=== PATIENT | female | born 1995 | race Caucasian/White ===

== ENCOUNTER 2020-03-01 20:05 | Emergency (ER) | payer SELFPAY ==
[2020-03-01] MEDS ORDERED: Ondansetron 4 MG/2 ML SDV IVPUSH ONE (20:37)
[2020-03-01] MEDS ORDERED: Sodium Chloride 0.9% 1,000 ML IV ONE (20:37)
[2020-03-01 21:16] LABS: BLOOD UREA NITROGEN,BUN 10 mg/dL (7.0-18.0); CARBON DIOXIDE,CO2 25.8 mmol/L (21.0-32.0); CHLORIDE,CL 102 mmol/L (98-107); GLUCOSE RANDOM 101 mg/dL (74-106); LIPASE 48 U/L (73-393); POTASSIUM,K 3.6 mmol/L (3.5-5.1); SODIUM,NA 139 mmol/L (136-145)
--- NOTE | 2020-03-01 21:29 | EDM.PDOC ---
ED HPI GENERAL MEDICAL PROBLEM - General Chief Complaint: Abdominal Pain Stated Complaint: ABDOMINAL PAIN Time Seen by Provider: 03/01/20 20:30 Source of Information: Reports: Patient History Limitations: Reports: No Limitations - History of Present Illness INITIAL COMMENTS - FREE TEXT/NARRATIVE: HISTORY AND PHYSICAL: History of present illness: This a 24-year-old female who has a history significant for asthma, status post cholecystectomy, x2, who presents the ER today secondary to abdominal pain x4 days. Patient reports of the last 4 days the pain was severe. She reports yesterday the pain improved significantly and the pain today started coming back. Patient reports that she has been able to tolerate p.o. solids and liquids well today. Patient reports that she ate pizza bites as well as a sandwich earlier today and drank some alcohol as well. Patient reports no fevers, shakes, chills. Patient reports nausea with no vomiting. Patient per she had 3 loose bowel movements today that were dark in color. Patient denies any dysuria frequency urgency. Patient has any cough cold or rhinorrhea. Patient denies any vaginal discharge. Patient reports that the pain is greatest in the left upper quadrant region. Review of systems: As per history of present illness and below otherwise all systems reviewed and negative. Past medical history: As per history of present illness and as reviewed below otherwise noncontributory. Surgical history: As per history of present illness and as reviewed below otherwise noncontributory. Social history: No reported history of drug or alcohol abuse. Family history: As per history of present illness and as reviewed below otherwise noncontributory. Physical exam: constitutional: Patient is oriented to person, place, and time. Appears well- developed and well-nourished. No distress. HEENT: Moist mucous membranes Head: Normocephalic and atraumatic Eyes: Right eye exhibits no discharge. Left eye exhibits no discharge. No scleral icterus Neck: Normal range of motion. No tracheal deviation present. Cardiovascular: Tachycardic rate and regular rhythm. Pulmonary: Effort normal, no respiratory distress. Abd: Soft, nondistended, no rebound/guarding, no psoas or obturator signs, no tenderness at Mcberney's point, no Kirkpatrick's sign. Pt does not present with an exam that would be consistent with an acute surgical abdomen at this time. Mild tenderness to palpation left upper quadrant. Musculoskeletal: Normal range of motion Neurologic: Alert and oriented to person, place and time. Skin: [place], warm and dry. Psychiatric: Normal mood and affect. Behavior is normal. Judgment and thought content normal. Nursing note and vital signs have been reviewed Patient's ER physical exam is significant for a nonsurgical abdomen. Patient with minimal tenderness to palpation to her left upper quadrant. Patient is resting comfortably does not appear to be in any acute distress. Patient's rectal exam revealed brown heme-negative stool. Diagnostics: Patient's labs are all within normal limits. Therapeutics: Patient be given normal saline solution x1 L. Zofran 4 mg IV. Impression: This is a 24-year-old female who presents to the ER today secondary to abdominal pain in the left upper quadrant. Patient is ready status post cholecystectomy. Patient is morbidly obese. Patient reports that she ate pizza bites as well as sandwich earlier today and was drinking alcohol earlier this evening. Patient reports she was able to tolerate the sandwich the pizza bites in the alcohol without any difficulty. Of concern with the patient is her tachycardic. Patient's heart rate was 115. Patient reports that she walked approximately 6-7 blocks to come to the ED and thinks that is why her heart rate was going fast. Plan: Patient feels much improved in the ED and appears to be no acute distress. Patient be discharged home with a prescription for Zofran and instructions to follow a bland diet over the next 24 hours and instructions follow-up with her primary care physician in the next 1 to 2 days for reevaluation. Reassessment at the time of disposition demonstrates that the patient is in no acute distress. The patient has remained stable throughout the entire ED visit and is without objective evidence for acute process requiring urgent intervention or hospitalization. The patient is stable for discharge, counseling is provided as documented above, discussed symptomatic treatment and specific conditions for return. I have spoken with the patient/caregive and discussed todays findings, in addition to providing specific details for the plan of care. Questions are answered and there is agreement with the plan. Definitive disposition and diagnosis as appropriate pending reevaluation and review of above. abdominal Pain Score (Numeric/FACES): 4 - Related Data Allergies Allergy/AdvReac Type Severity Reaction Status Date / Time celery Allergy Other Verified 03/01/20 20:23 cucumber Allergy Other Verified 03/01/20 20:23 latex Allergy Swelling Verified 03/01/20 20:23 Melons Allergy Difficulty Uncoded 03/01/20 20:23 Swallowing Home Meds: Home Meds Ondansetron [Zofran ODT] 4 mg PO Q6H PRN #12 tab.dis 03/01/20 [Rx] Past Medical History HEENT History: Reports: None Cardiovascular History: Reports: None Respiratory History: Reports: Asthma Other Respiratory History: REports currently no inhaler as no provider in area Other Gastrointestinal History: Cholecystitis, abdominal discomfort Genitourinary History: Reports: None SWITCH TECHNICIAN History: Reports: None Other Musculoskeletal History: Reports residual numbness to leg since Epidural for delivery , hx: fracturing toe & wrist Other Neuro History: Headaches Psychiatric History: Reports: None, ADHD, Anxiety, Depression Dermatologic History: Reports: None - Infectious Disease History Infectious Disease History: Reports: Chicken Pox, Hepatitis C - Past Surgical History GI Surgical History: Reports: Cholecystectomy Other Female Surgeries/Procedures: Social & Family History - Tobacco Use Smoking Status *Q: Current Every Day Smoker Years of Tobacco use: 5 Packs/Tins Daily: 1 - Recreational Drug Use Recreational Drug Use: No ED ROS GENERAL - Review of Systems Review Of Systems: Comprehensive ROS is negative, except as noted in HPI. ED EXAM, GENERAL - Physical Exam Exam: See Below Course - Vital Signs Last Recorded V/S: Last Vital Signs Temp 97.4 F 03/01/20 22:15 Pulse 89 03/01/20 22:15 Resp 18 03/01/20 22:15 BP 125/73 03/01/20 22:15 Pulse Ox 98 03/01/20 22:15 - Orders/Labs/Meds Labs: Laboratory Tests 03/01/20 03/01/20 03/01/20 Range/Units 20:37 20:37 20:48 WBC 13.96 H (4.0-11.0) K/uL RBC 4.94 (4.30-5.90) M/uL Hgb 14.3 (12.0-16.0) g/dL Hct 43.5 (36.0-46.0) % MCV 88.1 (80.0-98.0) fL MCH 28.9 (27.0-32.0) pg MCHC 32.9 (31.0-37.0) g/dL RDW Std Deviation 43.1 (28.0-62.0) fl RDW Coeff of [place] 13 (11.0-15.0) % Plt Count 266 (150-400) K/uL MPV 8.90 (7.40-12.00) fL Neut % (Auto) 64.7 (48.0-80.0) % Lymph % (Auto) 23.8 (16.0-40.0) % [place] % (Auto) 6.2 (0.0-15.0) % Eos % (Auto) 5.1 (0.0-7.0) % Baso % (Auto) 0.2 (0.0-1.5) % Neut # (Auto) 9.0 H (1.4-5.7) K/uL Lymph # (Auto) 3.3 H (0.6-2.4) K/uL [place] # (Auto) 0.9 H (0.0-0.8) K/uL Eos # (Auto) 0.7 (0.0-0.7) K/uL Baso # (Auto) 0.0 (0.0-0.1) K/uL Nucleated RBC % 0.0 /100WBC Nucleated RBCs # 0 K/uL Sodium (136-145) mmol/L Potassium (3.5-5.1) mmol/L Chloride (98-107) mmol/L Carbon Dioxide (21.0-32.0) mmol/L BUN (7.0-18.0) mg/dL Creatinine (0.6-1.0) mg/dL Est Cr Clr Drug Dosing mL/min Estimated GFR (MDRD) ml/min Glucose (74-106) mg/dL Calcium (8.5-10.1) mg/dL Total Bilirubin (0.2-1.0) mg/dL AST (15-37) IU/L ALT (14-63) IU/L Alkaline Phosphatase (46-116) U/L Total Protein (6.4-8.2) g/dL Albumin (3.4-5.0) g/dL Globulin (2.6-4.0) g/dL Albumin/Globulin Ratio (0.9-1.6) Lipase (73-393) U/L Urine Color YELLOW Urine Appearance CLEAR Urine pH 5.5 (5.0-8.0) Ur Specific [place] >= 1.030 (1.001-1.035) Urine Protein NEGATIVE (NEGATIVE) mg/dL Urine Glucose (UA) NEGATIVE (NEGATIVE) mg/dL Urine Ketones NEGATIVE (NEGATIVE) mg/dL Urine Occult Blood NEGATIVE (NEGATIVE) Urine Nitrite NEGATIVE (NEGATIVE) Urine Bilirubin NEGATIVE (NEGATIVE) Urine Urobilinogen 0.2 (<2.0) EU/dL Ur Leukocyte Esterase NEGATIVE (NEGATIVE) Urine HCG, Qual NEGATIVE (NEGATIVE) Ethyl Alcohol mg/dL 03/01/20 Range/Units 20:48 WBC (4.0-11.0) K/uL RBC (4.30-5.90) M/uL Hgb (12.0-16.0) g/dL Hct (36.0-46.0) % MCV (80.0-98.0) fL MCH (27.0-32.0) pg MCHC (31.0-37.0) g/dL RDW Std Deviation (28.0-62.0) fl RDW Coeff of [place] (11.0-15.0) % Plt Count (150-400) K/uL MPV (7.40-12.00) fL Neut % (Auto) (48.0-80.0) % Lymph % (Auto) (16.0-40.0) % [place] % (Auto) (0.0-15.0) % Eos % (Auto) (0.0-7.0) % Baso % (Auto) (0.0-1.5) % Neut # (Auto) (1.4-5.7) K/uL Lymph # (Auto) (0.6-2.4) K/uL [place] # (Auto) (0.0-0.8) K/uL Eos # (Auto) (0.0-0.7) K/uL Baso # (Auto) (0.0-0.1) K/uL Nucleated RBC % /100WBC Nucleated RBCs # K/uL Sodium 139 (136-145) mmol/L Potassium 3.6 (3.5-5.1) mmol/L Chloride 102 (98-107) mmol/L Carbon Dioxide 25.8 (21.0-32.0) mmol/L BUN 10 (7.0-18.0) mg/dL Creatinine 0.8 (0.6-1.0) mg/dL Est Cr Clr Drug Dosing 99.76 mL/min Estimated GFR (MDRD) > 60.0 ml/min Glucose 101 (74-106) mg/dL Calcium 8.4 L (8.5-10.1) mg/dL Total Bilirubin 0.3 (0.2-1.0) mg/dL AST 12 L (15-37) IU/L ALT 21 (14-63) IU/L Alkaline Phosphatase 93 (46-116) U/L Total Protein 7.8 (6.4-8.2) g/dL Albumin 3.5 (3.4-5.0) g/dL Globulin 4.3 H (2.6-4.0) g/dL Albumin/Globulin Ratio 0.8 L (0.9-1.6) Lipase 48 L (73-393) U/L Urine Color Urine Appearance Urine pH (5.0-8.0) Ur Specific [place] (1.001-1.035) Urine Protein (NEGATIVE) mg/dL Urine Glucose (UA) (NEGATIVE) mg/dL Urine Ketones (NEGATIVE) mg/dL Urine Occult Blood (NEGATIVE) Urine Nitrite (NEGATIVE) Urine Bilirubin (NEGATIVE) Urine Urobilinogen (<2.0) EU/dL Ur Leukocyte Esterase (NEGATIVE) Urine HCG, Qual (NEGATIVE) Ethyl Alcohol 3 mg/dL Meds: Medications Discontinued Medications Generic Name Dose Route Start Last Admin Trade Name Freq PRN Reason Stop Dose Admin Sodium Chloride 1,000 mls @ 1,000 mls/hr 03/01/20 20:37 03/01/20 20:48 Normal Saline IV 03/01/20 21:36 1,000 mls/hr BOLUS ONE Administration Ondansetron HCl 4 mg 03/01/20 20:37 Zofran IVPUSH 03/01/20 20:38 ONETIME ONE Departure - Departure Time of Disposition: 21:29 Disposition: Home, Self-Care 01 Condition: Good Clinical Impression: Abdominal pain - Discharge Information *PRESCRIPTION DRUG MONITORING PROGRAM REVIEWED*: Not Applicable *COPY OF PRESCRIPTION DRUG MONITORING REPORT IN PATIENT THU: Not Applicable Prescriptions: Ondansetron [Zofran ODT] 4 mg PO Q6H PRN #12 tab.dis PRN Reason: Pain Instructions: Abdominal Pain, Adult, [id number] Referrals: PCP,None [Primary Care Provider] - Forms: ED Department Discharge Additional Instructions: You were seen in the ER today secondary to your abdominal pain. Your ER work- up is been unremarkable. Over the next 1 to 2 days please follow a bland diet including no spices, clear liquids, toast cookies crackers. Nothing fatty or greasy. Please make an appointment to follow-up with your family doctor in the next 1 to 2 days for reevaluation. You have been given a prescription for Zofran to assist you with your nausea. Avoid all alcohol. The following information is given to patients seen in the emergency department who are being discharged to home. This information is to outline your options for follow-up care. We provide all patients seen in our emergency department with a follow-up referral. The need for follow-up, as well as the timing and circumstances, are variable depending upon the specifics of your emergency department visit. If you don't have a primary care physician on staff, we will provide you with a referral. We always advise you to contact your personal physician following an emergency department visit to inform them of the circumstance of the visit and for follow-up with them and/or the need for any referrals to a consulting specialist. The emergency department will also refer you to a specialist when appropriate. This referral assures that you have the opportunity for follow-up care with a specialist. All of these measure are taken in an effort to provide you with optimal care, which includes your follow-up. Under all circumstances we always encourage you to contact your private physician who remains a resource for coordinating your care. When calling for follow-up care, please make the office aware that this follow-up is from your recent emergency room visit. If for any reason you are refused follow-up, please contact the [facility] Emergency Department at and asked to speak to the emergency department charge nurse. Sepsis Event Note (ED) - Evaluation Sepsis Screening Result: No Definite Risk - Focused Exam Vital Signs: Vital Signs Temp Pulse Resp BP Pulse Ox 03/01/20 22:15 97.4 F 89 18 125/73 98 03/01/20 21:47 85 18 135/84 98 03/01/20 21:32 95 18 135/82 95 03/01/20 20:52 108 H 18 142/84 H 96 03/01/20 20:26 97.2 F 121 H 20 144/84 H 96
[2020-03-01 22:49] VITALS: BP 129/61; PULSE 96
== END 2020-03-01 22:49 | disposition home or self-care (01) ==
LOC: MW.ED 20:05
DX: R10.12 Left upper quadrant pain (principal); F17.210 Nicotine dependence, cigarettes, uncomplicated; Z90.49 Acquired absence of other specified parts of digestive tract; Z91.018 Allergy to other foods; Z91.040 Latex allergy status
CPT/HCPCS: 36415; 80053; 80307; 81003; 81025; 83690; 85025; 99284; J7030

== ENCOUNTER 2020-04-10 21:03 | Emergency (ER) | payer SELFPAY ==
[2020-04-10] MEDS ORDERED: Albuterol 8 GM Inhaler INH ONE (21:16)
[2020-04-10 21:19] VITALS: BP 133/75; PULSE 102
--- NOTE | 2020-04-10 21:22 | EDM.PDOC ---
ED HPI GENERAL MEDICAL PROBLEM - General Chief Complaint: General Stated Complaint: MEDICAL CLEARANCE Time Seen by Provider: 04/10/20 21:07 Source of Information: Reports: Patient History Limitations: Reports: No Limitations - History of Present Illness INITIAL COMMENTS - FREE TEXT/NARRATIVE: HISTORY AND PHYSICAL: History of present illness: Patient is a 25-year-old female who presents to the emergency room requesting a medication refill. Patient is currently in the custody of law enforcement and states she does not have her pro-air inhaler which she will typically use daily or every other day for asthma. She states she is currently asymptomatic and offers no current complaints or concerns. Patient denies any fever, chills, headache, change in vision, syncope or near syncope. Denies any chest pain, back pain, shortness of breath or cough. Denies any GI or symptoms. Denies any alcohol or drug abuse. Review of systems: As per history of present illness and below otherwise all systems reviewed and negative. Past medical history: As per history of present illness and as reviewed below otherwise noncontributory. Surgical history: As per history of present illness and as reviewed below otherwise noncontributory. Social history: See social history for further information Family history: As per history of present illness and as reviewed below otherwise noncontributory. Physical exam: General: Well-developed and well-nourished 25-year-old female. Alert and oriented. Nontoxic-appearing and in no acute distress. Patient is accompanied by law enforcement. HEENT: Atraumatic, normocephalic, pupils equal and reactive bilaterally, negative for conjunctival pallor or scleral icterus, mucous membranes moist, trachea midline. No drooling or trismus noted. No meningeal signs. No hot potato voice noted. Lungs: Clear to auscultation, breath sounds equal bilaterally, chest nontender. Heart: S1S2, regular rate and rhythm without overt murmur Abdomen: Soft, nondistended, nontender. Skin: Intact, warm, dry. No lesions or rashes noted. Extremities: Atraumatic, moves all extremities per self without difficulty or deficits, negative for cords or calf pain. Neurovascular unremarkable. Neuro: Awake, alert, oriented. Cranial nerves II through XII unremarkable. Cerebellum unremarkable. Motor and sensory unremarkable throughout. Exam nonfocal. Notes: My physical exam is within normal limits. She offers no current complaints or concerns. Pharmacy is closed so we will dispense a pro-air inhaler with education here. She declines wanting any diagnostics at this time. Supportive care measures were reviewed and discussed. Voices understanding and is agreeable to plan of care. Denies any further questions or concerns at this time. Diagnostics: None Therapeutics: Air inhaler Prescription: None Impression: Encounter for medical screening exam Encounter for medication refill Plan: 1. Please use the inhaler as needed, 2 puffs every 4 hours for cough or difficulty breathing. 2. You can alternate Tylenol and ibuprofen as needed for pain and fever management. 3. Follow-up with your primary care provider as discussed. Return to the ED as needed and as discussed. Definitive disposition and diagnosis as appropriate pending reevaluation and review of above. - Related Data Allergies Allergy/AdvReac Type Severity Reaction Status Date / Time celery Allergy Other Verified 04/10/20 21:12 cucumber Allergy Other Verified 04/10/20 21:12 latex Allergy Swelling Verified 04/10/20 21:12 Melons Allergy Difficulty Uncoded 04/10/20 21:12 Swallowing Home Meds: Home Meds Albuterol Sulfate [Proair Hfa] 2 puff INH ASDIRECTED PRN 04/10/20 [History] Past Medical History HEENT History: Reports: None Cardiovascular History: Reports: None Respiratory History: Reports: Asthma Other Respiratory History: REports currently no inhaler as no provider in area Other Gastrointestinal History: Cholecystitis, abdominal discomfort Genitourinary History: Reports: None LAN SPECIALIST History: Reports: None Other Musculoskeletal History: Reports residual numbness to leg since Epidural for delivery , hx: fracturing toe & wrist Other Neuro History: Headaches Psychiatric History: Reports: None, ADHD, Anxiety, Depression Dermatologic History: Reports: None - Infectious Disease History Infectious Disease History: Reports: Chicken Pox, Hepatitis C - Past Surgical History GI Surgical History: Reports: Cholecystectomy Other Female Surgeries/Procedures: ED ROS GENERAL - Review of Systems Review Of Systems: Comprehensive ROS is negative, except as noted in HPI. ED EXAM, GENERAL - Physical Exam Exam: See Below (See dictation) Course - Orders/Labs/Meds Orders: Active Orders 24 hr Category Date Time Status RT Post Treatment Assessment [RC] Click to Edit Care 04/10/20 21:16 Ordered RT Pre-Treatment Assessment [RC] Click to Edit Care 04/10/20 21:16 Ordered Meds: Medications Discontinued Medications Generic Name Dose Route Start Last Admin Trade Name Edward PRN Reason Stop Dose Admin Albuterol 1 gm 04/10/20 21:16 Ventolin Hfa INH 04/10/20 21:17 ONETIME ONE Departure - Departure Time of Disposition: 21:22 Disposition: Home, Self-Care 01 Clinical Impression: Encounter for medication refill, Encounter for medical screening examination - Discharge Information Instructions: Medical Screening Exam Referrals: PCP,None [Primary Care Provider] - Additional Instructions: The following information is given to patients seen in the emergency department who are being discharged to home. This information is to outline your options for follow-up care. We provide all patients seen in our emergency department with a follow-up referral. The need for follow-up, as well as the timing and circumstances, are variable depending upon the specifics of your emergency department visit. If you don't have a primary care physician on staff, we will provide you with a referral. We always advise you to contact your personal physician following an emergency department visit to inform them of the circumstance of the visit and for follow-up with them and/or the need for any referrals to a consulting specialist. The emergency department will also refer you to a specialist when appropriate. This referral assures that you have the opportunity for follow-up care with a specialist. All of these measure are taken in an effort to provide you with optimal care, which includes your follow-up. Under all circumstances we always encourage you to contact your private physician who remains a resource for coordinating your care. When calling for follow-up care, please make the office aware that this follow-up is from your recent emergency room visit. If for any reason you are refused follow-up, please contact the [facility] Emergency Department at and asked to speak to the emergency department charge nurse. [facility] [address] [place] [id number] [facility] [address] [place] [id number] Thank you for choosing the [facility] emergency department in [place] for your medical needs today. It was a pleasure caring for you. You were seen in the emergency department for medication refill 1. Please use the inhaler as needed, 2 puffs every 4 hours for cough or difficulty breathing. 2. You can alternate Tylenol and ibuprofen as needed for pain and fever management. 3. Follow-up with your primary care provider as discussed. Return to the ED as needed and as discussed. - My Orders Last 24 Hours: My Active Orders 04/10/20 21:16 RT Post Treatment Assessment [RC] Click to Edit RT Pre-Treatment Assessment [RC] Click to Edit - Assessment/Plan Last 24 Hours: My Active Orders 04/10/20 21:16 RT Post Treatment Assessment [RC] Click to Edit RT Pre-Treatment Assessment [RC] Click to Edit
== END 2020-04-10 21:36 | disposition home or self-care (01) ==
LOC: MW.ED 21:03
DX: J45.909 Unspecified asthma, uncomplicated (principal); Z76.0 Encounter for issue of repeat prescription; Z91.040 Latex allergy status; Z91.018 Allergy to other foods; Z79.899 Other long term (current) drug therapy
CPT/HCPCS: 99283; A9270

== ENCOUNTER 2020-12-19 15:49 | Emergency (ER) | payer BC ==
[2020-12-19] MEDS ORDERED: Sodium Chloride 0.9% 1,000 ML IV ONE (16:29)
[2020-12-19 17:37] LABS: BLOOD UREA NITROGEN,BUN 12 mg/dL (7.0-18.0); CARBON DIOXIDE,CO2 25.4 mmol/L (21.0-32.0); CHLORIDE,CL 103 mmol/L (98-107); GLUCOSE RANDOM 84 mg/dL (74-106); LIPASE 55 U/L (73-393); POTASSIUM,K 3.9 mmol/L (3.5-5.1); SODIUM,NA 136 mmol/L (136-145)
--- NOTE | 2020-12-19 18:23 | US ---
INDICATION: Pain in early gestational age is 13 weeks 3 days by LMP TECHNIQUE: Ultrasound OB pelvis transabdominal and transvaginal. Real-time cisneros-scale imaging of the pelvis was performed. COMPARISON: None FINDINGS: Sonographic imaging demonstrates a single living intrauterine gestation. The embryo demonstrates a regular cardiac rate measuring 166 beats per minute. The embryo`s crown rump length measurement of 6.3 cm corresponds to a gestational age of 12 weeks 5 days with a sonographic due date of June 28, 2021. Cervical length is 3.9 cm. There is a normal appearing yolk sac. There are no gross abnormalities noted within the embryo at this early state of development. The placenta is fundal and posterior. The anterior placental edge measures 3.1 cm from the cervical os. The gestational sac has a normal appearance and there is no evidence of a perigestational hemorrhage. The amount of fluid within the sac appears appropriate for gestational age. The ovaries were not seen. There are no suspicious fluid collections noted in the cul-de-sac. IMPRESSION: Single viable intrauterine . Gestational age calculated at 12 weeks 5 days. The ovaries were not identified on this exam. There is no free fluid. Dictated by Giuliana Issa MD @ Dec 19 2020 6:22PM Signed by Dr. Giuliana Issa @ Dec 19 2020 6:22PM
--- NOTE | 2020-12-19 18:28 | EDM.PDOC ---
ED HPI GENERAL MEDICAL PROBLEM - General Chief Complaint: HOUSEKEEPING ASSISTANT Problem Stated Complaint: ABDOMINAL PAIN 13 WKS Time Seen by Provider: 12/19/20 15:52 Source of Information: Reports: Patient History Limitations: Reports: No Limitations - History of Present Illness INITIAL COMMENTS - FREE TEXT/NARRATIVE: HISTORY AND PHYSICAL: History of present illness: Patient is a 25 year old female, who is approximately 13 weeks in gestation, who presents to the ED today with concern of bilateral lower abdominal pain that has been ongoing for 3 days. She states that she has had 2 prior C-sections due to preeclampsia and failure to dilate during labor. Patient states that the pain is "crossed where her was "and describes as sharp. Patient states the pain is worse with positions and better when she lays on her side and does not move with a pillow between her legs. Patient states that she has not taking any medication for her symptoms. Patient states that she sees one of the midwives at [facility]. Patient states that she had an ultrasound approximately 1 week ago and was told that everything "looked fine "with the baby. States she has a history of cholecystectomy, 2 prior c sections, but denies any other abdominal surgeries. Patient denies any vaginal bleeding or change in vaginal discharge. Patient denies fever, chills, chest pain, shortness of breath, or cough. Denies headache, neck stiff ness, change in vision, syncope, or near syncope. Denies nausea, vomiting, diarrhea, constipation, or dysuria. Has not noted any blood in urine or stool. Patient has been eating and drinking appropriately. Review of systems: As per history of present illness and below otherwise all systems reviewed and negative. Past medical history: As per history of present illness and as reviewed below otherwise noncontributory. Surgical history: As per history of present illness and as reviewed below otherwise noncontributory. Social history: See social history for further information Family history: As per history of present illness and as reviewed below otherwise noncontributory. Physical exam: General: Patient is alert, oriented, and in no acute distress. Patient sitting comfortably on exam table. Vitals stable and reviewed by me. HEENT: Atraumatic, normocephalic, pupils equal and reactive bilaterally, negative for conjunctival pallor or scleral icterus, mucous membranes moist, TMs normal bilaterally, throat clear, neck supple, nontender, trachea midline. No drooling or trismus noted. No meningeal signs. No hot potato voice noted. Lungs: Clear to auscultation, breath sounds equal bilaterally, chest nontender. Heart: S1S2, regular rate and rhythm without overt murmur Abdomen: Exam of abdomen is limited due to body habitus. Otherwise, soft, nondistended, mild-moderate lower abdominal tender. Negative rebound / virk. Negative for masses or hepatosplenomegaly. Negative for costovertebral tenderness. Pelvis: Stable nontender. Genitourinary: Deferred. Rectal: Deferred. Skin: Intact, warm, dry. No lesions or rashes noted. Extremities: Atraumatic, negative for cords or calf pain. Neurovascular unremarkable. Neuro: Awake, alert, oriented. Cranial nerves II through XII unremarkable. Cerebellum unremarkable. Motor and sensory unremarkable throughout. Exam nonfocal. Notes: On initial exam, patient is vitally stable and well-appearing. She does have moderate pain with movement of her lower abdomen. She does have mild to moderate lower abdominal tenderness which is difficult to assess and limited due to body habitus. Lab work today is unremarkable. Urine analysis is clear. Abdomen complete ultrasound shows no acute abnormalities. Transvaginal ultrasound shows single viable intrauterine with a gestational age of 12 weeks and 5 days. No free fluid. On reexamination of patient, she remains vitally stable and much more comfortable. Strict return precautions thoroughly discussed with patient. Discussed importance for follow-up with her HOUSEKEEPING ASSISTANT provider. Voices understanding and is agreeable to plan of care. Denies any further questions or concerns at this time. Diagnostics: CBC, CMP, UA, Hcg quant, Rh/Blood type, TVUS, Abd Complete US Therapeutics: NS Prescription: None Impression: Abdominal pain, unspecified Intrauterine , 12 weeks Plan: 1. Please start and/or continue to take your vitamin with folic acid once daily. 2. Pelvic rest until cleared by your OBGYN (no tampons, sex, etc...) 3. Tylenol as needed for pain management. This is safe to use in . 4. Follow up with your HOUSEKEEPING ASSISTANT as discussed. Return to the ED as needed and as discussed. Definitive disposition and diagnosis as appropriate pending reevaluation and review of above. Lower Abdomen Pain Score (Numeric/FACES): 8 - Related Data Allergies Allergy/AdvReac Type Severity Reaction Status Date / Time celery Allergy Other Verified 12/19/20 16:18 cucumber Allergy Other Verified 12/19/20 16:18 latex Allergy Swelling Verified 12/19/20 16:18 Melons Allergy Difficulty Uncoded 12/19/20 16:18 Swallowing Home Meds: Home Meds #103/Iron Fumarate/Fa [ ] 1 dose PO DAILY 12/19/20 [History] Past Medical History HEENT History: Reports: None Cardiovascular History: Reports: None Respiratory History: Reports: Asthma Other Respiratory History: REports currently no inhaler as no provider in area Other Gastrointestinal History: Cholecystitis, abdominal discomfort Genitourinary History: Reports: None HOUSEKEEPING ASSISTANT History: Reports: None Other Musculoskeletal History: Reports residual numbness to leg since Epidural for delivery , hx: fracturing toe & wrist Neurological History: Reports: Migraines Other Neuro History: Headaches Psychiatric History: Reports: None, ADHD, Anxiety, Depression Endocrine/Metabolic History: Reports: Obesity/BMI 30+ Dermatologic History: Reports: None - Infectious Disease History Infectious Disease History: Reports: Chicken Pox, Hepatitis C - Past Surgical History GI Surgical History: Reports: Cholecystectomy Other Female Surgeries/Procedures: Social & Family History - Family History Family Medical History: No Pertinent Family History - Tobacco Use Tobacco Use Status *Q: Current Every Day Tobacco User Years of Tobacco use: 7 Packs/Tins Daily: 0.1 - Caffeine Use Caffeine Use: Reports: None - Recreational Drug Use Recreational Drug Use: No ED ROS GENERAL - Review of Systems Review Of Systems: Comprehensive ROS is negative, except as noted in HPI. ED EXAM, GENERAL - Physical Exam Exam: See Below (see dictation) Course - Vital Signs Last Recorded V/S: Last Vital Signs Temp 96.9 F 12/19/20 16:19 Pulse 77 12/19/20 19:33 Resp 18 12/19/20 19:33 BP 110/59 L 12/19/20 19:33 Pulse Ox 100 12/19/20 19:33 - Orders/Labs/Meds Labs: Laboratory Tests 12/19/20 12/19/20 12/19/20 Range/Units 16:22 16:35 16:35 WBC 11.84 H (4.0-11.0) K/uL RBC 4.45 (4.30-5.90) M/uL Hgb 13.3 (12.0-16.0) g/dL Hct 39.5 (36.0-46.0) % MCV 88.8 (80.0-98.0) fL MCH 29.9 (27.0-32.0) pg MCHC 33.7 (31.0-37.0) g/dL RDW Std Deviation 44.9 (28.0-62.0) fl RDW Coeff of Ventura 14 (11.0-15.0) % Plt Count 207 (150-400) K/uL MPV 9.30 (7.40-12.00) fL Neut % (Auto) 71.3 (48.0-80.0) % Lymph % (Auto) 21.3 (16.0-40.0) % [place] % (Auto) 4.8 (0.0-15.0) % Eos % (Auto) 2.4 (0.0-7.0) % Baso % (Auto) 0.2 (0.0-1.5) % Neut # (Auto) 8.4 H (1.4-5.7) K/uL Lymph # (Auto) 2.5 H (0.6-2.4) K/uL [place] # (Auto) 0.6 (0.0-0.8) K/uL Eos # (Auto) 0.3 (0.0-0.7) K/uL Baso # (Auto) 0.0 (0.0-0.1) K/uL Nucleated RBC % 0.0 /100WBC Nucleated RBCs # 0 K/uL Sodium 136 (136-145) mmol/L Potassium 3.9 (3.5-5.1) mmol/L Chloride 103 (98-107) mmol/L Carbon Dioxide 25.4 (21.0-32.0) mmol/L BUN 12 (7.0-18.0) mg/dL Creatinine 0.6 (0.6-1.0) mg/dL Est Cr Clr Drug Dosing 131.85 mL/min Estimated GFR (MDRD) > 60.0 ml/min Glucose 84 (74-106) mg/dL Calcium 9.2 (8.5-10.1) mg/dL Total Bilirubin 0.3 (0.2-1.0) mg/dL AST 10 L (15-37) IU/L ALT 16 (14-63) IU/L Alkaline Phosphatase 70 (46-116) U/L Total Protein 7.4 (6.4-8.2) g/dL Albumin 2.9 L (3.4-5.0) g/dL Globulin 4.5 H (2.6-4.0) g/dL Albumin/Globulin Ratio 0.6 L (0.9-1.6) Lipase 55 L (73-393) U/L HCG, Quant 83769.0 mIU/mL Urine Color YELLOW Urine Appearance CLEAR Urine pH 6.5 (5.0-8.0) Ur Specific [place] 1.025 (1.001-1.035) Urine Protein NEGATIVE (NEGATIVE) mg/dL Urine Glucose (UA) NEGATIVE (NEGATIVE) mg/dL Urine Ketones NEGATIVE (NEGATIVE) mg/dL Urine Occult Blood NEGATIVE (NEGATIVE) Urine Nitrite NEGATIVE (NEGATIVE) Urine Bilirubin NEGATIVE (NEGATIVE) Urine Urobilinogen 0.2 (<2.0) EU/dL Ur Leukocyte Esterase NEGATIVE (NEGATIVE) Blood Type 12/19/20 Range/Units 16:44 WBC (4.0-11.0) K/uL RBC (4.30-5.90) M/uL Hgb (12.0-16.0) g/dL Hct (36.0-46.0) % MCV (80.0-98.0) fL MCH (27.0-32.0) pg MCHC (31.0-37.0) g/dL RDW Std Deviation (28.0-62.0) fl RDW Coeff of Ventura (11.0-15.0) % Plt Count (150-400) K/uL MPV (7.40-12.00) fL Neut % (Auto) (48.0-80.0) % Lymph % (Auto) (16.0-40.0) % Dar[place] % (Auto) (0.0-15.0) % Eos % (Auto) (0.0-7.0) % Baso % (Auto) (0.0-1.5) % Neut # (Auto) (1.4-5.7) K/uL Lymph # (Auto) (0.6-2.4) K/uL Dar[place] # (Auto) (0.0-0.8) K/uL Eos # (Auto) (0.0-0.7) K/uL Baso # (Auto) (0.0-0.1) K/uL Nucleated RBC % /100WBC Nucleated RBCs # K/uL Sodium (136-145) mmol/L Potassium (3.5-5.1) mmol/L Chloride (98-107) mmol/L Carbon Dioxide (21.0-32.0) mmol/L BUN (7.0-18.0) mg/dL Creatinine (0.6-1.0) mg/dL Est Cr Clr Drug Dosing mL/min Estimated GFR (MDRD) ml/min Glucose (74-106) mg/dL Calcium (8.5-10.1) mg/dL Total Bilirubin (0.2-1.0) mg/dL AST (15-37) IU/L ALT (14-63) IU/L Alkaline Phosphatase (46-116) U/L Total Protein (6.4-8.2) g/dL Albumin (3.4-5.0) g/dL Globulin (2.6-4.0) g/dL Albumin/Globulin Ratio (0.9-1.6) Lipase (73-393) U/L HCG, Quant mIU/mL Urine Color Urine Appearance Urine pH (5.0-8.0) Ur Specific Bristol (1.001-1.035) Urine Protein (NEGATIVE) mg/dL Urine Glucose (UA) (NEGATIVE) mg/dL Urine Ketones (NEGATIVE) mg/dL Urine Occult Blood (NEGATIVE) Urine Nitrite (NEGATIVE) Urine Bilirubin (NEGATIVE) Urine Urobilinogen (<2.0) EU/dL Ur Leukocyte Esterase (NEGATIVE) Blood Type O POSITIVE Meds: Medications Discontinued Medications Generic Name Dose Route Start Last Admin Trade Name Freq PRN Reason Stop Dose Admin Sodium Chloride 1,000 mls @ 999 mls/hr 12/19/20 16:29 12/19/20 16:49 Normal Saline IV 12/19/20 17:29 999 mls/hr STAT ONE Administration Departure - Departure Time of Disposition: 19:19 Disposition: Home, Self-Care 01 Clinical Impression: Intrauterine Abdominal pain Qualifiers: Abdominal location: lower abdomen, unspecified Qualified Code(s): R10.30 - Lower abdominal pain, unspecified - Discharge Information Instructions: Abdominal Pain, Adult Referrals: PCP,None [Primary Care Provider] - Forms: ED Department Discharge Additional Instructions: The following information is given to patients seen in the emergency department who are being discharged to home. This information is to outline your options for follow-up care. We provide all patients seen in our emergency department with a follow-up referral. The need for follow-up, as well as the timing and circumstances, are variable depending upon the specifics of your emergency department visit. If you don't have a primary care physician on staff, we will provide you with a referral. We always advise you to contact your personal physician following an emergency department visit to inform them of the circumstance of the visit and for follow-up with them and/or the need for any referrals to a consulting spec ialist. The emergency department will also refer you to a specialist when appropriate. This referral assures that you have the opportunity for follow-up care with a specialist. All of these measure are taken in an effort to provide you with optimal care, which includes your follow-up. Under all circumstances we always encourage you to contact your private physician who remains a resource for coordinating your care. When calling for follow-up care, please make the office aware that this follow-up is from your recent emergency room visit. If for any reason you are refused follow-up, please contact the [facility] Emergency Department at and asked to speak to the emergency department charge nurse. [facility] [address] [place] [id number] [facility] [address] [place] [id number] [facility] [address] [place] [address] 1. Please start and/or continue to take your vitamin with folic acid once daily. 2. Pelvic rest until cleared by your OBGYN (no tampons, sex, etc...) 3. Tylenol as needed for pain management. This is safe to use in . 4. Follow up with your HOUSEKEEPING ASSISTANT as discussed. Return to the ED as needed and as discussed. Sepsis Event Note (ED) - Evaluation Sepsis Screening Result: No Definite Risk - Focused Exam Vital Signs: Vital Signs Temp Pulse Resp BP Pulse Ox 12/19/20 19:33 77 18 110/59 L 100 12/19/20 18:38 72 17 120/63 99 12/19/20 18:08 73 18 108/73 98 12/19/20 16:19 96.9 F 99 19 139/73 96
--- NOTE | 2020-12-19 19:20 | US ---
INDICATION: Abdominal pain in TECHNIQUE: Ultrasound abdomen complete. Sonographic images of the entire abdomen were obtained using cisneros-scale and color Doppler. COMPARISON: None FINDINGS: Liver: Increased echotexture throughout the liver. No masses. No intrahepatic biliary dilatation. Gallbladder: Status post cholecystectomy. Common bile duct: 4.9 mm. Pancreas: Normal. Spleen: Normal in size and appearance. Right kidney: 12.0 x 5.3 x 6.2 cm. Normal echotexture and cortex. No masses, stones, or hydronephrosis. Left kidney: 13.5 x 5.7 x 5.6 cm. Normal echotexture and cortex. No masses, stones, or hydronephrosis. Vasculature: Proximal abdominal aorta and IVC are normal in caliber. IMPRESSION: No acute abnormality identified. Status post cholecystectomy. Dictated by Giuliana Issa MD @ Dec 19 2020 7:19PM Signed by Dr. Giuliana Issa @ Dec 19 2020 7:19PM
[2020-12-19 19:38] VITALS: BP 110/59; PULSE 77
== END 2020-12-19 19:33 | disposition home or self-care (01) ==
LOC: MW.ED 15:49
DX: O99.891 Other specified diseases and conditions complicating pregnancy (principal); R10.31 Right lower quadrant pain; O99.511 Diseases of the respiratory system complicating pregnancy, first trimester; J45.909 Unspecified asthma, uncomplicated; O99.211 Obesity complicating pregnancy, first trimester; Z91.018 Allergy to other foods; Z91.040 Latex allergy status; Z3A.13 13 weeks gestation of pregnancy
CPT/HCPCS: 76700; 76801; 80053; 81003; 83690; 84702; 85025; 86900; 86901; 99284; J7030; 99283

== ENCOUNTER 2021-06-15 04:23 | Inpatient (IN) | payer BC, MEDICAID ==
[2021-06-15] MEDS ORDERED: Sodium Chloride 0.9% 2.5 ML Syringe FLUSH PRN (05:36)
[2021-06-15] MEDS ORDERED: Sodium Chloride 0.9% 10 ML SDV IV PRN (05:36)
[2021-06-15] MEDS ORDERED: Sodium Chloride 0.9% 10 ML Syringe FLUSH PRN (05:36)
[2021-06-15] MEDS ORDERED: Citric Acid/Sodium Citrate Solution 30 ML Cup PO ONE (05:36)
[2021-06-15] MEDS ORDERED: Oxytocin/0.9 % Sodium Chloride 30 UNIT/500 ML BAG IV SCH (05:45)
[2021-06-15] MEDS: Lactated Ringers 1,000 ML IV SCH ×2 (05:56→08:04)
[2021-06-15] MEDS ORDERED: Ketorolac 30 MG/ML SDV ONE (07:27)
[2021-06-15] MEDS ORDERED: Sodium Chloride 0.9% 20 ML ONE (07:27)
[2021-06-15] MEDS ORDERED: Oxytocin 10 Units/1 ML SDV ONE (07:27)
[2021-06-15] MEDS ORDERED: ceFAZolin 1 GM Vial ONE (07:27)
[2021-06-15] MEDS ORDERED: Ondansetron 4 MG/2 ML SDV ONE (07:27)
[2021-06-15] MEDS ORDERED: Morphine PF 10 MG/10 ML SDV ONE (07:29)
[2021-06-15] MEDS ORDERED: ceFAZolin 2 GM in Premix Bag 1 BAG IV ONE (07:30)
[2021-06-15] MEDS ORDERED: ePHEDrine 50 MG/ML SDV IVPUSH PRN (07:43)
--- NOTE | 2021-06-15 07:43 | PCM.PREANE ---
Preanesthetic Assessment - Anesthesia/Transfusion/Family Hx Anesthesia History: Prior Anesthesia Without Reaction Other Type of Anesthesia Reaction Comment: With lingering Leg numbess since epidural, denies any other probl Family History of Anesthesia Reaction: No Transfusion History: No Prior Transfusion(s) - Physical Assessment NPO Status Date: 06/15/21 NPO Status Time: 00:05 Height: 1.68 m Weight: 126.099 kg ASA Class: 2 - Lab Values: Laboratory Last Values WBC 11.18 K/uL (4.0-11.0) H 06/15/21 05:01 RBC 4.08 M/uL (4.30-5.90) L 06/15/21 05:01 Hgb 12.1 g/dL (12.0-16.0) 06/15/21 05:01 Hct 36.0 % (36.0-46.0) 06/15/21 05:01 MCV 88.2 fL (80.0-98.0) 06/15/21 05:01 MCH 29.7 pg (27.0-32.0) 06/15/21 05:01 MCHC 33.6 g/dL (31.0-37.0) 06/15/21 05:01 RDW Std Deviation 43.2 fl (28.0-62.0) 06/15/21 05:01 RDW Coeff of Ventura 14 % (11.0-15.0) 06/15/21 05:01 Plt Count 191 K/uL (150-400) 06/15/21 05:01 MPV 9.50 fL (7.40-12.00) 06/15/21 05:01 Blood Type O POSITIVE 06/15/21 05:01 Antibody Screen NEGATIVE 06/15/21 05:01 - Allergies Allergies/Adverse Reactions: Allergies Allergy/AdvReac Type Severity Reaction Status Date / Time celery Allergy Anaphylactic Verified 06/09/21 08:33 Shock cucumber Allergy Anaphylactic Verified 06/09/21 08:33 Shock latex Allergy Cannot Verified 06/09/21 08:33 Remember Melons Allergy Anaphylactic Uncoded 06/09/21 08:33 Shock - Acknowledgements Anesthesia Type Planned: Spinal Pt an Appropriate Candidate for the Planned Anesthesia: Yes Alternatives and Risks of Anesthesia Discussed w Pt/Guardian: Yes Pt/Guardian Understands and Agrees with Anesthesia Plan: Yes PreAnesthesia Questionnaire HEENT History: Reports: None Cardiovascular History: Reports: None Respiratory History: Reports: Asthma Other Respiratory History: REports currently no inhaler as no provider in area Gastrointestinal History: Reports: Hepatitis, Other (See Below) Other Gastrointestinal History: Cholecystitis, abdominal discomfort Genitourinary History: Reports: None 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 Other Musculoskeletal History: Reports residual numbness to leg since Epidural for delivery , hx: fracturing toe & wrist Neurological History: Reports: Migraines Other Neuro History: Headaches Psychiatric History: Reports: ADHD, Anxiety, Depression Endocrine/Metabolic History: Reports: Obesity/BMI 30+ Other Endocrine/Metabolic History: "prediabetic" Hematologic History: Reports: None Immunologic History: Reports: None Oncologic (Cancer) History: Reports: None Dermatologic History: Reports: None - Infectious Disease History Infectious Disease History: Reports: Chicken Pox, Hepatitis C, Herpes - Past Surgical History Head Surgeries/Procedures: Reports: None HEENT Surgical History: Reports: None Cardiovascular Surgical History: Reports: None Respiratory Surgical History: Reports: None GI Surgical History: Reports: Cholecystectomy Female Surgical History: Reports: Section Other Female Surgeries/Procedures: Endocrine Surgical History: Reports: None Neurological Surgical History: Reports: None Musculoskeletal Surgical History: Reports: None Oncologic Surgical History: Reports: None Dermatological Surgical History: Reports: None - SUBSTANCE USE Tobacco Use Status *Q: Current Some Day Tobacco User Tobacco Use Within Last Twelve Months: Cigarettes Second Hand Smoke Exposure: Yes Recreational Drug Type: Reports: Marijuana/Hashish Recreational Drug Last Use: "1 week ago" - HOME MEDS Home Medications: Home Meds #103/Iron Fumarate/Fa [ ] 1 dose PO DAILY 12/19/20 [History] - CURRENT (IN HOUSE) MEDS Current Meds: Current Medications Oxytocin/Sodium Chloride (Oxytocin 30 Unit In Ns 0.9% 500 Ml Premix) 30 unit in 500 mls @ 250 mls/hr IV TITRATE CORINNE Cefazolin Sodium/Dextrose 2 gm (/ Premix) 50 mls @ 100 mls/hr IV ONETIME ONE Stop: 06/15/21 07:59 Lactated Ringer's (Ringers, Lactated) 1,000 mls @ 500 mls/hr IV BOLUS CORINNE Last Admin: 06/15/21 05:56 Dose: 999 mls/hr Documented by: Sodium Chloride (Sodium Chloride 0.9% 10 Ml Syringe) 10 ml FLUSH ASDIRECTED PRN PRN Reason: Keep Vein Open Sodium Chloride (Sodium Chloride 0.9% 2.5 Ml Syringe) 2.5 ml FLUSH ASDIRECTED PRN PRN Reason: Keep Vein Open Sodium Chloride (Sodium Chloride 0.9% 10 Ml Sdv) 10 ml IV ASDIRECTED PRN PRN Reason: IV Use Discontinued Medications Cefazolin Sodium (Cefazolin 1 Gm Vial) Confirm Administered Dose 2 gm .ROUTE .STK-MED ONE Stop: 06/15/21 07:28 Citric Acid/Sodium Citrate (Citric Acid/Sodium Citrate Solution 30 Ml Cup) 30 ml PO ONETIME ONE Stop: 06/15/21 05:37 Sodium Chloride (Normal Saline) Confirm Administered Dose 20 mls @ as directed .ROUTE .STK-MED ONE Stop: 06/15/21 07:28 Ketorolac Tromethamine (Ketorolac 30 Mg/Ml Sdv) Confirm Administered Dose 30 mg .ROUTE .STK-MED ONE Stop: 06/15/21 07:28 Morphine Sulfate (Morphine Pf 10 Mg/10 Ml Sdv) Confirm Administered Dose 10 mg .ROUTE .STK-MED ONE Stop: 06/15/21 07:30 Ondansetron HCl (Ondansetron 4 Mg/2 Ml Sdv) Confirm Administered Dose 4 mg .ROUTE .STK-MED ONE Stop: 06/15/21 07:28 Oxytocin (Oxytocin 10 Units/1 Ml Sdv) Confirm Administered Dose 20 unit .ROUTE .STK-MED ONE Stop: 06/15/21 07:28
[2021-06-15] MEDS ORDERED: Octyl 2-Cyanoacrylate 1 Tube ONE (07:51)
[2021-06-15] MEDS ORDERED: Ropivacaine 0.2% 2MG/ML 200 ML Bag EPIDUR SCH (08:00)
--- NOTE | 2021-06-15 08:29 | PCM.LDHP ---
L&D History of Present Illness - General Date of Service: 06/15/21 Admit Problem/Dx: Patient Status Order with Admit Dx/Problem 06/15/21 04:17 Patient Status [ADT] Routine Admission Diagnosis/Problem Admission Diagnosis/Problem Source of Information: Patient History Limitations: Reports: No Limitations - History of Present Illness Introduction:: 26yo at 38w6d GA here for repeat . Patient has a h/o x2. Patient is O+, Abs screen neg. RI, RPR NR, HBsAg neg, HIV neg. - Related Data Allergies/Adverse Reactions: Allergies Allergy/AdvReac Type Severity Reaction Status Date / Time celery Allergy Anaphylactic Verified 06/09/21 08:33 Shock cucumber Allergy Anaphylactic Verified 06/09/21 08:33 Shock latex Allergy Cannot Verified 06/09/21 08:33 Remember Melons Allergy Anaphylactic Uncoded 06/09/21 08:33 Shock Home Medications: Home Meds #103/Iron Fumarate/Fa [ ] 1 dose PO DAILY 12/19/20 [History] Past Medical History HEENT History: Reports: None Cardiovascular History: Reports: None Respiratory History: Reports: Asthma Other Respiratory History: REports currently no inhaler as no provider in area Gastrointestinal History: Reports: Hepatitis, Other (See Below) Other Gastrointestinal History: Cholecystitis, abdominal discomfort Genitourinary History: Reports: None 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 Other Musculoskeletal History: Reports residual numbness to leg since Epidural for delivery , hx: fracturing toe & wrist Neurological History: Reports: Migraines Other Neuro History: Headaches Psychiatric History: Reports: ADHD, Anxiety, Depression Endocrine/Metabolic History: Reports: Obesity/BMI 30+ Other Endocrine/Metabolic History: "prediabetic" Hematologic History: Reports: None Immunologic History: Reports: None Oncologic (Cancer) History: Reports: None Dermatologic History: Reports: None - Infectious Disease History Infectious Disease History: Reports: Chicken Pox, Hepatitis C, Herpes - Past Surgical History Head Surgeries/Procedures: Reports: None HEENT Surgical History: Reports: None Cardiovascular Surgical History: Reports: None Respiratory Surgical History: Reports: None GI Surgical History: Reports: Cholecystectomy Female Surgical History: Reports: Section Other Female Surgeries/Procedures: Endocrine Surgical History: Reports: None Neurological Surgical History: Reports: None Musculoskeletal Surgical History: Reports: None Oncologic Surgical History: Reports: None Dermatological Surgical History: Reports: None Social & Family History - Family History Family Medical History: No Pertinent Family History HEENT: Reports: Cataract Respiratory: Reports: None GI: Reports: Cholelithiasis : Reports: None OBGYN: Reports: Musculoskeletal: Reports: None Neurological: Reports: Alzheimers Disease Psychiatric: Reports: Depression Endocrine/Metabolic: Reports: Diabetes, type II Hematologic: Reports: None Immunologic: Reports: None Dermatologic: Reports: None Oncologic: Reports: Lung - Tobacco Use Tobacco Use Status *Q: Current Some Day Tobacco User Years of Tobacco use: 8 Packs/Tins Daily: 0.1 Used Tobacco, but Quit: No Month/Year Tobacco Last Used: quit smoking approx 6 months ago, last smoked marijuana 1 week ago Second Hand Smoke Exposure: Yes - Caffeine Use Caffeine Use: Reports: Coffee, Soda, Tea - Recreational Drug Use Drug Use in Last 12 Months: Yes Recreational Drug Type: Reports: Marijuana/Hashish Recreational Drug Use Frequency: Socially Recreational Drug Last Use: "1 week ago" H&P Review of Systems - Review of Systems: Review Of Systems: See Below General: Reports: No Symptoms HEENT: Reports: No Symptoms Pulmonary: Reports: No Symptoms Genitourinary: Reports: No Symptoms Musculoskeletal: Reports: No Symptoms Skin: Reports: No Symptoms Psychiatric: Reports: No Symptoms Neurological: Reports: No Symptoms Hematologic/Lymphatic: Reports: No Symptoms Immunologic: Reports: No Symptoms L&D Exam - Exam Exam: See Below - Vital Signs Weight: 126.099 kg - Exam General: Alert, Oriented Lungs: Normal Respiratory Effort Cardiovascular: Regular Rate GI/Abdominal Exam: Soft, Non-Tender Back Exam: Normal Inspection Psychiatric: Alert, Normal Affect, Normal Mood - Patient Data Lab Results Last 24 hrs: Laboratory Results - last 24 hr 06/15/21 06/15/21 Range/Units 05:01 05:01 WBC 11.18 H (4.0-11.0) K/uL RBC 4.08 L (4.30-5.90) M/uL Hgb 12.1 (12.0-16.0) g/dL Hct 36.0 (36.0-46.0) % MCV 88.2 (80.0-98.0) fL MCH 29.7 (27.0-32.0) pg MCHC 33.6 (31.0-37.0) g/dL RDW Std Deviation 43.2 (28.0-62.0) fl RDW Coeff of [place] 14 (11.0-15.0) % Plt Count 191 (150-400) K/uL MPV 9.50 (7.40-12.00) fL Blood Type O POSITIVE Antibody Screen NEGATIVE Result Diagrams: 06/15/21 05:01 - Problem List (1) Term SNOMED Code(s): 26476867 ICD Code: Z34.90 - ENCNTR FOR SUPRVSN OF NORMAL , UNSP, UNSP TRIMESTER Status: Acute Current Visit: Yes (2) History of SNOMED Code(s): 373825774 ICD Code: Z98.891 - HISTORY OF UTERINE SCAR FROM PREVIOUS SURGERY Status: Acute Current Visit: Yes Problem List Initiated/Reviewed/Updated: Yes Orders Last 24hrs: Active Orders 24 hr Category Date Time Status Patient Status [ADT] Routine ADT 06/15/21 04:17 Active Communication Order [RC] PRN Care 06/15/21 07:43 Active Non Stress Test [RC] PER UNIT ROUTINE Care 06/15/21 05:36 Active Notify Provider Vital Signs [RC] PRN Care 06/15/21 05:37 Active Procedure Site Prep Instruct [RC] ASDIRECTED Care 06/15/21 05:36 Active Up ad Mary [RC] ASDIRECTED Care 06/15/21 05:36 Active Verify Patient Consent Obtain [RC] ASDIRECTED Care 06/15/21 05:36 Active Vital Signs [RC] PER UNIT ROUTINE Care 06/15/21 05:36 Active RPR (SYPHILIS SERO) W/ RFLX [REF] Routine Lab 06/15/21 05:01 Received Lactated Ringers [Ringers, Lactated] 1,000 ml Med 06/15/21 05:45 Active IV BOLUS Oxytocin/0.9 % Sodium Chloride [Oxytocin 30 Unit in NS Med 06/15/21 05:45 Active 0.9% 500 ML Premix] 30 unit in 500 ml IV TITRATE Phenylephrine HCl In 0.9% NaCl [Phenylephrine 1 MG/10 Med 06/15/21 07:43 Active ML-NS] 0.1 mg IVPUSH Q1M PRN Ropivacaine HCl/PF [Naropin 0.2%] Med 06/15/21 08:00 Active 400 mg EPIDUR ASDIRECTED Sodium Chloride 0.9% [Normal Saline] Med 06/15/21 05:36 Active 10 ml IV ASDIRECTED PRN Sodium Chloride 0.9% [Saline Flush] Med 06/15/21 05:36 Active 10 ml FLUSH ASDIRECTED PRN Sodium Chloride 0.9% [Saline Flush] Med 06/15/21 05:36 Active 2.5 ml FLUSH ASDIRECTED PRN ePHEDrine [ePHEDrine sulfate] Med 06/15/21 07:43 Active 10 mg IVPUSH Q1M PRN Peripheral IV Insertion Adult [OM.PC] Routine Oth 06/15/21 05:36 Ordered Schedule Procedure [COMM] Per Unit Routine Oth 06/15/21 05:36 Ordered Resuscitation Status Routine Resus Stat 06/15/21 05:36 Ordered Medication Orders Ephedrine Sulfate (Ephedrine 50 Mg/Ml Sdv) 10 mg IVPUSH Q1M PRN PRN Reason: Hypotension Oxytocin/Sodium Chloride (Oxytocin 30 Unit In Ns 0.9% 500 Ml Premix) 30 unit in 500 mls @ 250 mls/hr IV TITRATE CORINNE Lactated Ringer's (Ringers, Lactated) 1,000 mls @ 500 mls/hr IV BOLUS [facility] Admin: 06/15/21 08:04 Dose: 999 mls/hr Documented by: Infusion: 06/15/21 06:57 Dose: 999 mls/hr Documented by: Admin: 06/15/21 05:56 Dose: 999 mls/hr Documented by: VASYL Miscellaneous Medication (Phenylephrine Hcl In 0.9% Nacl 1 Mg/10 Ml Syringe) 0.1 mg IVPUSH Q1M PRN PRN Reason: Hypotension Ropivacaine (Ropivacaine 0.2% 2mg/Ml 200 Ml Bag) 400 mg EPIDUR ASDIRECTED CORINNE Sodium Chloride (Sodium Chloride 0.9% 10 Ml Syringe) 10 ml FLUSH ASDIRECTED PRN PRN Reason: Keep Vein Open Sodium Chloride (Sodium Chloride 0.9% 2.5 Ml Syringe) 2.5 ml FLUSH ASDIRECTED PRN PRN Reason: Keep Vein Open Sodium Chloride (Sodium Chloride 0.9% 10 Ml Sdv) 10 ml IV ASDIRECTED PRN PRN Reason: IV Use Assessment/Plan Comment:: 26yo at 38w6d GA here for repeat . DIscussed risks and benefits. Patient signed consents, Orders placed
--- NOTE | 2021-06-15 09:57 | PCM.POSTAN ---
POST ANESTHESIA ASSESSMENT - MENTAL STATUS Mental Status: Alert - RESPIRATORY Respiratory Status: Respiratory Rate WNL - CARDIOVASCULAR CV Status: Pulse Rate WNL - GASTROINTESTINAL GI Status: No Symptoms - POST OP HYDRATION Hydration Status: Adequate & Stable
--- NOTE | 2021-06-15 10:18 | PCM48HPAN ---
Post Anesthesia Note - EVALUATION WITHIN 48HRS OF ANESTHETIC Vital Signs in Normal Range: Yes Patient Participated in Evaluation: Yes Respiratory Function Stable: Yes Airway Patent: Yes Cardiovascular Function Stable: Yes Hydration Status Stable: Yes Pain Control Satisfactory: Yes Nausea and Vomiting Control Satisfactory: Yes Mental Status Recovered: Yes
[2021-06-15] MEDS ORDERED: Naloxone 0.4 MG/ML SDV IVPUSH ONE (11:03)
[2021-06-15] MEDS ORDERED: diphenhydrAMINE 50 MG/ML SDV IVPUSH PRN (11:06)
[2021-06-15] MEDS ORDERED: Tranexamic Acid 1,000 MG in Sodium Chloride 0.9% 100 ML IV PRN (11:07)
[2021-06-15] MEDS ORDERED: Ibuprofen 800 MG Tab PO PRN (11:07)
[2021-06-15] MEDS ORDERED: Ondansetron 4 MG/2 ML SDV IVPUSH PRN (11:07)
[2021-06-15] MEDS ORDERED: Nalbuphine 10 MG/1 ML Vial IVPUSH PRN (11:07)
[2021-06-15] MEDS ORDERED: Bisacodyl 10 MG Supp RECTAL PRN (11:07)
[2021-06-15] MEDS ORDERED: Misoprostol 200 MCG Tab RECTAL PRN (11:07)
[2021-06-15] MEDS ORDERED: Methylergonovine 0.2 MG/1 ML Amp IM PRN (11:07)
[2021-06-15] MEDS ORDERED: Lanolin 100% Cream 7 GM Tube TOP PRN (11:07)
[2021-06-15] MEDS ORDERED: Acetaminophen/oxyCODONE 325-5 MG Tab PO PRN (11:07)
[2021-06-15] MEDS ORDERED: Oxytocin 10 Units/1 ML SDV IM PRN (11:07)
[2021-06-15] MEDS ORDERED: Lactated Ringers 1,000 ML IV SCH (11:15)
[2021-06-15] MEDS ORDERED: Oxytocin/Lactated Ringers 30 UNIT/500 ML BAG IV SCH (11:15)
[2021-06-15] MEDS ORDERED: Ketorolac 30 MG/ML SDV IVPUSH SCH (11:15)
--- NOTE | 2021-06-15 11:15 | PCM.DEL ---
L & D Note - General Info Date of Service: 06/15/21 Mother's Due Date: 06/23/21 - Delivery Note Labor: Spontaneous Delivery Outcome: Livebirth Infant Delivery Method: Repeat Presentation: Vertex Nuchal Cord: Present, Reduced Anesthesia Type: Spinal Placenta: Intact Estimated Blood Loss: 700 Resuscitation Needed: No Delivery Comments (Free Text/Narrative):: 26yo G3 now P3003 s/p uncomplicated repeat at 38w6d GA See operative report. - General Info Date of Service: 06/15/21 Subjective Update: Mom and baby are doing well. Functional Status: Reports: Pain Controlled - Review of Systems General: Reports: No Symptoms HEENT: Reports: No Symptoms Pulmonary: Reports: No Symptoms Gastrointestinal: Reports: No Symptoms Genitourinary: Reports: No Symptoms, Incontinence Skin: Reports: No Symptoms Neurological: Reports: No Symptoms Psychiatric: Reports: No Symptoms - Patient Data Weight - Most Recent: 126.099 kg I&O - Last 24 Hours: Intake & Output 06/14/21 06/15/21 06/15/21 22:59 06:59 14:59 Output Total 100 Balance -100 Lab Results Last 24 Hours: Laboratory Results - last 24 hr 06/15/21 06/15/21 Range/Units 05:01 05:01 WBC 11.18 H (4.0-11.0) K/uL RBC 4.08 L (4.30-5.90) M/uL Hgb 12.1 (12.0-16.0) g/dL Hct 36.0 (36.0-46.0) % MCV 88.2 (80.0-98.0) fL MCH 29.7 (27.0-32.0) pg MCHC 33.6 (31.0-37.0) g/dL RDW Std Deviation 43.2 (28.0-62.0) fl RDW Coeff of [place] 14 (11.0-15.0) % Plt Count 191 (150-400) K/uL MPV 9.50 (7.40-12.00) fL Blood Type O POSITIVE Antibody Screen NEGATIVE Med Orders - Current: Current Medications Diphenhydramine HCl (Diphenhydramine 50 Mg/Ml Sdv) 25 mg IVPUSH Q6H PRN PRN Reason: Itching Ephedrine Sulfate (Ephedrine 50 Mg/Ml Sdv) 10 mg IVPUSH Q1M PRN PRN Reason: Hypotension Oxytocin/Sodium Chloride (Oxytocin 30 Unit In Ns 0.9% 500 Ml Premix) 30 unit in 500 mls @ 250 mls/hr IV TITRATE [facility] Lactated Ringer's (Ringers, Lactated) 1,000 mls @ 500 mls/hr IV BOLUS [facility] Last Admin: 06/15/21 08:04 Dose: 999 mls/hr Documented by: Miscellaneous Medication (Phenylephrine Hcl In 0.9% Nacl 1 Mg/10 Ml Syringe) 0.1 mg IVPUSH Q1M PRN PRN Reason: Hypotension Nalbuphine HCl (Nalbuphine 10 Mg/1 Ml Vial) 5 mg IVPUSH Q3H PRN PRN Reason: Itching Ropivacaine (Ropivacaine 0.2% 2mg/Ml 200 Ml Bag) 400 mg EPIDUR ASDIRECTED CORINNE Sodium Chloride (Sodium Chloride 0.9% 10 Ml Syringe) 10 ml FLUSH ASDIRECTED PRN PRN Reason: Keep Vein Open Sodium Chloride (Sodium Chloride 0.9% 2.5 Ml Syringe) 2.5 ml FLUSH ASDIRECTED PRN PRN Reason: Keep Vein Open Sodium Chloride (Sodium Chloride 0.9% 10 Ml Sdv) 10 ml IV ASDIRECTED PRN PRN Reason: IV Use Discontinued Medications Cefazolin Sodium (Cefazolin 1 Gm Vial) Confirm Administered Dose 2 gm .ROUTE .ST K-MED ONE Stop: 06/15/21 07:28 Citric Acid/Sodium Citrate (Citric Acid/Sodium Citrate Solution 30 Ml Cup) 30 ml PO ONETIME ONE Stop: 06/15/21 05:37 Cefazolin Sodium/Dextrose 2 gm (/ Premix) 50 mls @ 100 mls/hr IV ONETIME ONE Stop: 06/15/21 07:59 Sodium Chloride (Normal Saline) Confirm Administered Dose 20 mls @ as directed .ROUTE .STK-MED ONE Stop: 06/15/21 07:28 Ketorolac Tromethamine (Ketorolac 30 Mg/Ml Sdv) Confirm Administered Dose 30 mg .ROUTE .STK-MED ONE Stop: 06/15/21 07:28 Morphine Sulfate (Morphine Pf 10 Mg/10 Ml Sdv) Confirm Administered Dose 10 mg .ROUTE .STK-MED ONE Stop: 06/15/21 07:30 Naloxone HCl (Naloxone 0.4 Mg/Ml Sdv) 0.1 mg IVPUSH ONETIME ONE Stop: 06/15/21 11:04 Octyl Cyanoacrylate (Octyl 2-Cyanoacrylate 1 Tube) Confirm Administered Dose 1 applic .ROUTE .STK-MED ONE Stop: 06/15/21 07:52 Ondansetron HCl (Ondansetron 4 Mg/2 Ml Sdv) Confirm Administered Dose 4 mg .ROUTE .STK-MED ONE Stop: 06/15/21 07:28 Oxytocin (Oxytocin 10 Units/1 Ml Sdv) Confirm Administered Dose 20 unit .ROUTE .STK-MED ONE Stop: 06/15/21 07:28 - Exam General: Alert, Oriented Lungs: Normal Respiratory Effort Cardiovascular: Regular Rate GI/Abdominal Exam: Soft, Non-Tender Extremities: Normal Inspection Psy/Mental Status: Alert, Normal Affect, Normal Mood - Problem List & Annotations (1) Term SNOMED Code(s): 66730482 Code(s): Z34.90 - ENCNTR FOR SUPRVSN OF NORMAL , UNSP, UNSP TRIMESTER Status: Acute Current Visit: Yes (2) History of SNOMED Code(s): 971549921 Code(s): Z98.891 - HISTORY OF UTERINE SCAR FROM PREVIOUS SURGERY Status: Acute Current Visit: Yes (3) Term delivered SNOMED Code(s): 32849769, 663583773 Code(s): O80 - ENCOUNTER FOR FULL-TERM UNCOMPLICATED DELIVERY Status: Acute Current Visit: Yes - Problem List Review Problem List Initiated/Reviewed/Updated: Yes - My Orders Last 24 Hours: My Active Orders 06/15/21 11:07 Patient Status [ADT] Routine Ambulate [RC] PER UNIT ROUTINE Communication Order [RC] PER UNIT ROUTINE Communication Order [RC] PER UNIT ROUTINE Communication Order [RC] Per Unit Routine May Shower [RC] ASDIRECTED Notify Provider Intake and Out [RC] ASDIRECTED Notify Provider Vital Signs [RC] ASDIRECTED RT Incentive Spirometry [RC] Q2HWA Vital Signs [RC] PER UNIT ROUTINE Acetaminophen/oxyCODONE [Percocet 325-5 MG] 1 tab PO Q4H PRN Acetaminophen/oxyCODONE [Percocet 325-5 MG] 2 tab PO Q4H PRN Ibuprofen [Motrin] 800 mg PO Q8H PRN Lanolin [Lansinoh HPA] See Dose Instructions TOP ASDIRECTED PRN Methylergonovine [Methergine] 0.2 mg IM ONETIME PRN Ondansetron [Zofran] 4 mg IVPUSH Q4H PRN Oxytocin [Pitocin] 10 unit IM ASDIRECTED PRN Tranexamic Acid [Cyklokapron] 1,000 mg Sodium Chloride 0.9% [Normal Saline] 100 ml IV ONETIME bisacodyL [Dulcolax] 10 mg RECTAL ONETIME PRN diphenhydrAMINE [Benadryl] 25 mg IVPUSH Q6H PRN miSOPROStoL [Cytotec] 1,000 mcg RECTAL ONETIME PRN Assess Lochia [WOMSER] Per Unit Routine Assess Uterine Involution [WOMSER] Per Unit Routine Breast Pump [WOMSER] Per Unit Routine Peripheral IV Discontinue [OM.PC] Routine Sequential Compression Device [OM.PC] Per Unit Routine 06/15/21 11:08 Antiembolic Devices [RC] PER UNIT ROUTINE 06/15/21 11:15 Ketorolac [Toradol] 30 mg IVPUSH Q6H Lactated Ringers @ 125 MLS/HR(1000ml) Lactated Ringers [Ringers, Lactated] 1,000 ml IV ASDIRECTED Oxytocin/Lactated Ringers [Pitocin in LR 30 Units/500 ML] 30 unit in 500 ml IV TITRATE 06/15/21 21:00 Docusate Sodium [Colace] 100 mg PO BID 06/16/21 05:11 HEMOGLOBIN/HEMATOCRIT,HH [HEME] Timed - Plan Plan:: 26yo G3 now P3003 s/p uncomplicated repeat at 38w6d GA Mom and baby are doing well. P: Routine per unit protocol
[2021-06-15] MEDS: diphenhydrAMINE 50 MG/ML SDV IVPUSH PRN (11:23)
[2021-06-15] MEDS: Ketorolac 30 MG/ML SDV IVPUSH SCH ×2 (15:38→21:37)
[2021-06-15] MEDS: Docusate Sodium 100 MG Cap PO SCH (21:37)
[2021-06-16] MEDS: Ketorolac 30 MG/ML SDV IVPUSH SCH ×2 (03:28→09:20)
[2021-06-16] MEDS: Docusate Sodium 100 MG Cap PO SCH ×2 (09:17→20:03)
--- NOTE | 2021-06-16 11:09 | PCM.PNPP ---
- General Info Date of Service: 06/16/21 Admission Dx/Problem (Free Text): Patient Status Order with Admit Dx/Problem 06/15/21 04:17 Patient Status [ADT] Routine Admission Diagnosis/Problem Admission Diagnosis/Problem Subjective Update: Massiel is a 26 yo current PPD1 S/P uncomplicated to term . O pos, RNI, GBS negative. Adequate perioperative antibiotic prophylaxis completed. Patient has no complaints or concerns at this time. Patient is exclusively well, resting comfortably in bed with in bassinet. Patient reports she is eating, voiding, ambulating independently and without difficulty. Patient denies any problems or concerns at this time except mild-moderate intermittent uterine cramping and incision pain with Percocet and Ibuprofen available if needed. Patient reports small vaginal bleeding with no clots. Low transverse incision RUFINO dressing clean, dry, intact. . Functional Status: Reports: Pain Controlled, Tolerating Diet, Ambulating, Urinating - Review of Systems General: Reports: No Symptoms HEENT: Reports: No Symptoms Pulmonary: Reports: No Symptoms Cardiovascular: Reports: No Symptoms Gastrointestinal: Reports: No Symptoms Genitourinary: Reports: No Symptoms Musculoskeletal: Reports: No Symptoms Skin: Reports: No Symptoms Neurological: Reports: No Symptoms Psychiatric: Reports: No Symptoms - General Info Date of Service: 06/16/21 - Patient Data Vital Signs - Most Recent: Last Vital Signs Temp 98.6 F 06/16/21 08:17 Pulse 89 06/16/21 08:17 Resp 15 06/16/21 08:17 BP 97/57 L 06/16/21 08:17 Pulse Ox 97 06/16/21 08:17 Weight - Most Recent: 278 lb I&O - Last 24 Hours: Intake & Output 06/15/21 06/16/21 06/16/21 22:59 06:59 14:59 Intake Total 1000 Output Total 350 1325 400 Balance 650 -1325 -400 Lab Results - Last 24 Hours: Laboratory Results - last 24 hr 06/16/21 Range/Units 06:24 Hgb 10.9 L (12.0-16.0) g/dL Hct 32.4 L (36.0-46.0) % Med Orders - Current: Current Medications Bisacodyl (Bisacodyl 10 Mg Supp) 10 mg RECTAL ONETIME PRN PRN Reason: Constipation Diphenhydramine HCl (Diphenhydramine 50 Mg/Ml Sdv) 25 mg IVPUSH Q6H PRN PRN Reason: Itching Last Admin: 06/15/21 18:33 Dose: 25 mg Documented by: Diphenhydramine HCl (Diphenhydramine 50 Mg/Ml Sdv) 25 mg IVPUSH Q6H PRN PRN Reason: Itching or Nausea Last Admin: 06/15/21 11:23 Dose: 25 mg Documented by: Docusate Sodium (Docusate Sodium 100 Mg Cap) 100 mg PO BID CORINNE Last Admin: 06/16/21 09:17 Dose: 100 mg Documented by: Emollient Ointment (Lanolin 100% Cream 7 Gm Tube) 0 gm TOP ASDIRECTED PRN PRN Reason: Sore Nipples Ephedrine Sulfate (Ephedrine 50 Mg/Ml Sdv) 10 mg IVPUSH Q1M PRN PRN Reason: Hypotension Oxytocin/Sodium Chloride (Oxytocin 30 Unit In Ns 0.9% 500 Ml Premix) 30 unit in 500 mls @ 250 mls/hr IV TITRATE CORINNE Lactated Ringer's (Ringers, Lactated) 1,000 mls @ 500 mls/hr IV BOLUS [facility] Last Admin: 06/15/21 08:04 Dose: 999 mls/hr Documented by: Lactated Ringer's (Ringers, Lactated) 1,000 mls @ 125 mls/hr IV ASDIRECTED [facility] Last Admin: 06/15/21 12:43 Dose: 125 mls/hr Documented by: Oxytocin/Lactated Ringer's (Pitocin In Lr 30 Units/500 Ml) 30 unit in 500 mls @ 2 mls/hr IV TITRATE [facility]; Protocol Tranexamic Acid 1,000 mg/ (Sodium Chloride) 110 mls @ 660 mls/hr IV ONETIME PRN PRN Reason: Bleeding Ibuprofen (Ibuprofen 800 Mg Tab) 800 mg PO Q8H PRN PRN Reason: Cramping Methylergonovine Maleate (Methylergonovine 0.2 Mg/1 Ml Amp) 0.2 mg IM ONETIME PRN PRN Reason: Excessive Vaginal Bleeding Miscellaneous Medication (Phenylephrine Hcl In 0.9% Nacl 1 Mg/10 Ml Syringe) 0.1 mg IVPUSH Q1M PRN PRN Reason: Hypotension Misoprostol (Misoprostol 200 Mcg Tab) 1,000 mcg RECTAL ONETIME PRN PRN Reason: excessive bleeding Nalbuphine HCl (Nalbuphine 10 Mg/1 Ml Vial) 5 mg IVPUSH Q3H PRN PRN Reason: Itching Ondansetron HCl (Ondansetron 4 Mg/2 Ml Sdv) 4 mg IVPUSH Q4H PRN PRN Reason: Nausea/Vomiting Oxycodone/Acetaminophen (Acetaminophen/Oxycodone 325-5 Mg Tab) 1 tab PO Q4H PRN PRN Reason: Pain (severe 7-10) Oxycodone/Acetaminophen (Acetaminophen/Oxycodone 325-5 Mg Tab) 2 tab PO Q4H PRN PRN Reason: Pain (severe 7-10) Oxytocin (Oxytocin 10 Units/1 Ml Sdv) 10 unit IM ASDIRECTED PRN PRN Reason: Excessive Vaginal Bleeding Ropivacaine (Ropivacaine 0.2% 2mg/Ml 200 Ml Bag) 400 mg EPIDUR ASDIRECTED CORINNE Sodium Chloride (Sodium Chloride 0.9% 10 Ml Syringe) 10 ml FLUSH ASDIRECTED PRN PRN Reason: Keep Vein Open Sodium Chloride (Sodium Chloride 0.9% 2.5 Ml Syringe) 2.5 ml FLUSH ASDIRECTED PRN PRN Reason: Keep Vein Open Sodium Chloride (Sodium Chloride 0.9% 10 Ml Sdv) 10 ml IV ASDIRECTED PRN PRN Reason: IV Use Discontinued Medications Cefazolin Sodium (Cefazolin 1 Gm Vial) Confirm Administered Dose 2 gm .ROUTE .STK-MED ONE Stop: 06/15/21 07:28 Citric Acid/Sodium Citrate (Citric Acid/Sodium Citrate Solution 30 Ml Cup) 30 ml PO ONETIME ONE Stop: 06/15/21 05:37 Cefazolin Sodium/Dextrose 2 gm (/ Premix) 50 mls @ 100 mls/hr IV ONETIME ONE Stop: 06/15/21 07:59 Sodium Chloride (Normal Saline) Confirm Administered Dose 20 mls @ as directed .ROUTE .STK-MED ONE Stop: 06/15/21 07:28 Ketorolac Tromethamine (Ketorolac 30 Mg/Ml Sdv) Confirm Administered Dose 30 mg .ROUTE .STK-MED ONE Stop: 06/15/21 07:28 Ketorolac Tromethamine (Ketorolac 30 Mg/Ml Sdv) 30 mg IVPUSH Q6H CORINNE Stop: 06/16/21 09:31 Last Admin: 06/16/21 09:20 Dose: 30 mg Documented by: Morphine Sulfate (Morphine Pf 10 Mg/10 Ml Sdv) Confirm Administered Dose 10 mg .ROUTE .STK-MED ONE Stop: 06/15/21 07:30 Naloxone HCl (Naloxone 0.4 Mg/Ml Sdv) 0.1 mg IVPUSH ONETIME ONE Stop: 06/15/21 11:04 Octyl Cyanoacrylate (Octyl 2-Cyanoacrylate 1 Tube) Confirm Administered Dose 1 applic .ROUTE .STK-MED ONE Stop: 06/15/21 07:52 Ondansetron HCl (Ondansetron 4 Mg/2 Ml Sdv) Confirm Administered Dose 4 mg .ROUTE .STK-MED ONE Stop: 06/15/21 07:28 Oxytocin (Oxytocin 10 Units/1 Ml Sdv) Confirm Administered Dose 20 unit .ROUTE .STK-MED ONE Stop: 06/15/21 07:28 - Interaction Disposition, : [place] in Room with Family Infant Interaction: Not Interacting Feeding: Breastfed ; Nursed Well, Continues to Breastfeed, Encouraged to Breastfeed Support Person: Significant Other - Recovery Exam Fundal Tone: Firm Fundal Level: 2 Fingerbreadths Below Umbilicus Fundal Placement: Midline Lochia Amount: Small Lochia Color: Rubra/Red Perineum Description: Intact, Minimal Bruising/Swelling Episiotomy/Laceration: None Bladder Status: Voiding Urinary Elimination: Voided - Exam General: Alert, Oriented, Cooperative, No Acute Distress HEENT: Pupils Equal, Mucous Membr. Moist/[place] Neck: Supple Lungs: Clear to Auscultation, Normal Respiratory Effort Cardiovascular: Regular Rate, Regular Rhythm GI/Abdominal Exam: Normal Bowel Sounds, Soft, Non-Tender, No Organomegaly, No Distention Extremities: Normal Inspection, Normal Range of Motion, Non-Tender, No Pedal Edema, Normal Capillary Refill Skin: Warm, Dry, Intact Wound/Incisions: Dressing Dry and Intact, No Drainage Neurological: No New Focal Deficit Psy/Mental Status: Alert, Normal Affect, Normal Mood - Problem List & Annotations (1) Status post repeat low transverse section SNOMED Code(s): 538430793, 55594419, 240393103, 510117461, 430538643 Code(s): Z98.891 - HISTORY OF UTERINE SCAR FROM PREVIOUS SURGERY Status: Acute Priority: High Current Visit: Yes (2) Lactating mother SNOMED Code(s): 625557935, 274494504 Code(s): Z39.1 - ENCOUNTER FOR CARE AND EXAMINATION OF LACTATING MOTHER Status: Acute Priority: High Current Visit: Yes - Problem List Review Problem List Initiated/Reviewed/Updated: Yes - Plan Plan:: Plan to continue inpatient course. Hemodynamically stable, afebrile. Hemoglobin 10.9, F/U as indicated. Continue PO analgesia as ordered. Continue EBFing, eating, voiding, ambulating independently. Plan to D/C in am pending labs and discharge. Dr. Vidal notified and agreeable with POC.
[2021-06-16] MEDS ORDERED: Measles, Mumps & Rubella Vaccine 0.5 ML SDV SUBCUT ONE (11:11)
[2021-06-16] MEDS: diphenhydrAMINE 50 MG/ML SDV IVPUSH PRN (11:57)
[2021-06-16] MEDS ORDERED: Ibuprofen 800 MG Tab PO PRN (15:30)
[2021-06-16] MEDS: Acetaminophen/oxyCODONE 325-5 MG Tab PO PRN ×2 (15:35→20:03)
[2021-06-17] MEDS: Acetaminophen/oxyCODONE 325-5 MG Tab PO PRN ×4 (00:48→13:54)
[2021-06-17] MEDS ORDERED: Acetaminophen 500 MG Tab PO ONE (01:59)
[2021-06-17] MEDS ORDERED: hydrOXYzine HCl 25 MG Tab PO ONE (01:59)
[2021-06-17] MEDS ORDERED: hydrOXYzine HCl 25 MG Tab ONE (02:27)
[2021-06-17 04:59] VITALS: PULSE 77
[2021-06-17 09:00] VITALS: BP 103/58
[2021-06-17] MEDS: Docusate Sodium 100 MG Cap PO SCH (09:19)
--- NOTE | 2021-06-17 09:19 | PCM.DCSUM1 ---
Discharge Summary - Hospital Course Free Text/Narrative:: Discharge home with baby. Follow up in the clinic in one week for postop visit. Follow up in the clinic in six weeks for routine visit; sooner, if needed. Diagnosis: Stroke: No Modified Jose Guadalupe Scale: No Symptoms at All Modified Dickey Scale Score: 0 - Discharge Data Discharge Date: 06/17/21 Discharge Disposition: Home, Self-Care 01 Condition: Good - Referral to Home Health Primary Care Physician: PCP None - Patient Instructions Diet: Regular Diet as Tolerated, Drink 8-10+ Glasses/Day Activity: As Tolerated, No Strenuous Activities, Rest and Relax Today Driving: Do Not Drive Showering/Bathing: May Shower Wound/Incision Care: Keep Operative Site/Wound Site Clean and Dry, Do NOT Change Dressing Notify Provider of: Fever, Increased Pain, Swelling and Redness, Drainage, Nausea and/or Vomiting - Discharge Plan *PRESCRIPTION DRUG MONITORING PROGRAM REVIEWED*: Not Applicable *COPY OF PRESCRIPTION DRUG MONITORING REPORT IN PATIENT THU: Not Applicable Prescriptions/Med Rec: Acetaminophen/oxyCODONE [Percocet 325-5 MG] 1 - 2 tab PO Q4H PRN #30 tablet PRN Reason: Pain (Severe 7-10) Home Medications: Home Meds #103/Iron Fumarate/Fa [ ] 1 dose PO DAILY 12/19/20 [History] Acetaminophen/oxyCODONE [Percocet 325-5 MG] 1 - 2 tab PO Q4H PRN #30 tablet 06/17/21 [Rx] Oxygen Therapy Mode: Room Air Patient Handouts: Delivery, Care After Referrals: Jose Vidal MD [Physician] - 06/21/21 2:00 pm (You may bring your with to your appointment. Masks are required. Bring ID and insurance cards.) - Discharge Summary/Plan Comment DC Time >30 min.: Yes Total # of Minutes for Discharge Time: n/a - General Info Date of Service: 06/17/21 Functional Status: Reports: Pain Controlled, Tolerating Diet, Ambulating, U rinating - Review of Systems General: Reports: No Symptoms HEENT: Reports: No Symptoms Pulmonary: Reports: No Symptoms Cardiovascular: Reports: No Symptoms Gastrointestinal: Reports: No Symptoms Genitourinary: Reports: No Symptoms Musculoskeletal: Reports: No Symptoms Skin: Reports: No Symptoms Neurological: Reports: No Symptoms Psychiatric: Reports: No Symptoms - Patient Data Vitals - Most Recent: Last Vital Signs Temp 98.2 F 06/17/21 08:00 Pulse 77 06/17/21 08:00 Resp 18 06/17/21 08:00 BP 103/58 L 06/17/21 08:00 Pulse Ox 97 06/17/21 08:00 Weight - Most Recent: 278 lb Lab Results - Last 24 hrs: Laboratory Results - last 24 hr 06/15/21 Range/Units 05:01 RPR Non-Reac (Non-Reac) Med Orders - Current: Current Medications Bisacodyl (Bisacodyl 10 Mg Supp) 10 mg RECTAL ONETIME PRN PRN Reason: Constipation Diphenhydramine HCl (Diphenhydramine 50 Mg/Ml Sdv) 25 mg IVPUSH Q6H PRN PRN Reason: Itching Last Admin: 06/15/21 18:33 Dose: 25 mg Documented by: Diphenhydramine HCl (Diphenhydramine 50 Mg/Ml Sdv) 25 mg IVPUSH Q6H PRN PRN Reason: Itching or Nausea Last Admin: 06/16/21 11:57 Dose: 25 mg Documented by: Docusate Sodium (Docusate Sodium 100 Mg Cap) 100 mg PO BID CORINNE Last Admin: 06/16/21 20:03 Dose: 100 mg Documented by: Emollient Ointment (Lanolin 100% Cream 7 Gm Tube) 0 gm TOP ASDIRECTED PRN PRN Reason: Sore Nipples Ephedrine Sulfate (Ephedrine 50 Mg/Ml Sdv) 10 mg IVPUSH Q1M PRN PRN Reason: Hypotension Oxytocin/Sodium Chloride (Oxytocin 30 Unit In Ns 0.9% 500 Ml Premix) 30 unit in 500 mls @ 250 mls/hr IV TITRATE CORINNE Lactated Ringer's (Ringers, Lactated) 1,000 mls @ 500 mls/hr IV BOLUS [facility] Last Admin: 06/15/21 08:04 Dose: 999 mls/hr Documented by: Lactated Ringer's (Ringers, Lactated) 1,000 mls @ 125 mls/hr IV ASDIRECTED [facility] Last Admin: 06/15/21 12:43 Dose: 125 mls/hr Documented by: Oxytocin/Lactated Ringer's (Pitocin In Lr 30 Units/500 Ml) 30 unit in 500 mls @ 2 mls/hr IV TITRATE CORINNE; Protocol Tranexamic Acid 1,000 mg/ (Sodium Chloride) 110 mls @ 660 mls/hr IV ONETIME PRN PRN Reason: Bleeding Ibuprofen (Ibuprofen 800 Mg Tab) 800 mg PO Q8H PRN PRN Reason: Cramping Measles/Mumps/Rubella Vaccine Live (Measles, Mumps & Rubella Vaccine 0.5 Ml Sdv) 0.5 ml SUBCUT .ONCE ONE Stop: 06/16/21 11:12 Methylergonovine Maleate (Methylergonovine 0.2 Mg/1 Ml Amp) 0.2 mg IM ONETIME PRN PRN Reason: Excessive Vaginal Bleeding Miscellaneous Medication (Phenylephrine Hcl In 0.9% Nacl 1 Mg/10 Ml Syringe) 0.1 mg IVPUSH Q1M PRN PRN Reason: Hypotension Misoprostol (Misoprostol 200 Mcg Tab) 1,000 mcg RECTAL ONETIME PRN PRN Reason: excessive bleeding Nalbuphine HCl (Nalbuphine 10 Mg/1 Ml Vial) 5 mg IVPUSH Q3H PRN PRN Reason: Itching Ondansetron HCl (Ondansetron 4 Mg/2 Ml Sdv) 4 mg IVPUSH Q4H PRN PRN Reason: Nausea/Vomiting Oxycodone/Acetaminophen (Acetaminophen/Oxycodone 325-5 Mg Tab) 1 tab PO Q4H PRN PRN Reason: Pain (severe 7-10) Oxycodone/Acetaminophen (Acetaminophen/Oxycodone 325-5 Mg Tab) 2 tab PO Q4H PRN PRN Reason: Pain (severe 7-10) Last Admin: 06/17/21 04:54 Dose: 2 tab Documented by: Oxytocin (Oxytocin 10 Units/1 Ml Sdv) 10 unit IM ASDIRECTED PRN PRN Reason: Excessive Vaginal Bleeding Ropivacaine (Ropivacaine 0.2% 2mg/Ml 200 Ml Bag) 400 mg EPIDUR ASDIRECTED CORINNE Sodium Chloride (Sodium Chloride 0.9% 10 Ml Syringe) 10 ml FLUSH ASDIRECTED PRN PRN Reason: Keep Vein Open Sodium Chloride (Sodium Chloride 0.9% 2.5 Ml Syringe) 2.5 ml FLUSH ASDIRECTED PRN PRN Reason: Keep Vein Open Sodium Chloride (Sodium Chloride 0.9% 10 Ml Sdv) 10 ml IV ASDIRECTED PRN PRN Reason: IV Use Discontinued Medications Acetaminophen (Acetaminophen 500 Mg Tab) 500 mg PO ONETIME ONE Stop: 06/17/21 02:00 Last Admin: 06/17/21 02:37 Dose: 500 mg Documented by: Cefazolin Sodium (Cefazolin 1 Gm Vial) Confirm Administered Dose 2 gm .ROUTE .STK-MED ONE Stop: 06/15/21 07:28 Citric Acid/Sodium Citrate (Citric Acid/Sodium Citrate Solution 30 Ml Cup) 30 ml PO ONETIME ONE Stop: 06/15/21 05:37 Hydroxyzine HCl (Hydroxyzine Hcl 25 Mg Tab) 50 mg PO ONETIME ONE Stop: 06/17/21 02:00 Last Admin: 06/17/21 02:37 Dose: 50 mg Documented by: Hydroxyzine HCl (Hydroxyzine Hcl 25 Mg Tab) Confirm Administered Dose 50 mg .ROUTE .STK-MED ONE Stop: 06/17/21 02:28 Last Admin: 06/17/21 03:46 Dose: Not Given Documented by: Cefazolin Sodium/Dextrose 2 gm (/ Premix) 50 mls @ 100 mls/hr IV ONETIME ONE Stop: 06/15/21 07:59 Sodium Chloride (Normal Saline) Confirm Administered Dose 20 mls @ as directed .ROUTE .STK-MED ONE Stop: 06/15/21 07:28 Ketorolac Tromethamine (Ketorolac 30 Mg/Ml Sdv) Confirm Administered Dose 30 mg .ROUTE .STK-MED ONE Stop: 06/15/21 07:28 Ketorolac Tromethamine (Ketorolac 30 Mg/Ml Sdv) 30 mg IVPUSH Q6H CORINNE Stop: 06/16/21 09:31 Last Admin: 06/16/21 09:20 Dose: 30 mg Documented by: Morphine Sulfate (Morphine Pf 10 Mg/10 Ml Sdv) Confirm Administered Dose 10 mg .ROUTE .STK-MED ONE Stop: 06/15/21 07:30 Naloxone HCl (Naloxone 0.4 Mg/Ml Sdv) 0.1 mg IVPUSH ONETIME ONE Stop: 06/15/21 11:04 Octyl Cyanoacrylate (Octyl 2-Cyanoacrylate 1 Tube) Confirm Administered Dose 1 applic .ROUTE .STK-MED ONE Stop: 06/15/21 07:52 Ondansetron HCl (Ondansetron 4 Mg/2 Ml Sdv) Confirm Administered Dose 4 mg .ROUTE .STK-MED ONE Stop: 06/15/21 07:28 Oxytocin (Oxytocin 10 Units/1 Ml Sdv) Confirm Administered Dose 20 unit .ROUTE .STK-MED ONE Stop: 06/15/21 07:28 - Exam General: Reports: Alert, Oriented, Cooperative, No Acute Distress Lungs: Reports: Normal Respiratory Effort Cardiovascular: Reports: Regular Rate, Regular Rhythm GI/Abdominal Exam: Soft, Non-Tender (Female) Exam: Deferred Rectal (Female) Exam: Deferred Back Exam: Reports: Normal Inspection, Full Range of Motion Extremities: Normal Inspection, Normal Range of Motion, Non-Tender, Normal Capillary Refill Skin: Reports: Warm, Dry, Intact Wound/Incisions: Reports: Dressing Dry and Intact Neurological: Reports: No New Focal Deficit, Normal Speech, Normal Tone, Sensation Intact Psy/Mental Status: Reports: Alert, Normal Affect, Normal Mood
== END 2021-06-17 14:40 | disposition home or self-care (01) | DRG 788 ==
LOC: MW.OB 04:23
PROVIDERS: ADMIT Obstetrics & Gynecology; ATTEND Obstetrics & Gynecology
PROC: 10D00Z1 Extraction of Products of Conception, Low, Open Approach (ICD-10-PCS; principal; 2021-06-15)
DX: O34.211 Maternal care for low transverse scar from previous cesarean delivery (principal); Z37.0 Single live birth; Z3A.38 38 weeks gestation of pregnancy; Z91.040 Latex allergy status; O99.52 Diseases of the respiratory system complicating childbirth; J45.909 Unspecified asthma, uncomplicated; O99.214 Obesity complicating childbirth; O99.334 Smoking (tobacco) complicating childbirth; F17.200 Nicotine dependence, unspecified, uncomplicated; Z90.49 Acquired absence of other specified parts of digestive tract
CPT/HCPCS: 36415; 59025; 85014; 85018; 85027; 86592; 86850; 86900; 86901; A9270-GY; J0690; J1200; J1885; J2270; J2405; J2590; J7120

== ENCOUNTER 2023-05-02 13:51 | Emergency (ER) | payer OTHER, MEDICAID ==
[2023-05-02 14:40] VITALS: BP 136/88; PULSE 99
== END 2023-05-02 15:18 | disposition home or self-care (01) ==
LOC: MW.ED 13:51
DX: S13.4XXA Sprain of ligaments of cervical spine, initial encounter (principal); E66.9 Obesity, unspecified; Z68.42 Body mass index [BMI] 45.0-49.9, adult; Z79.899 Other long term (current) drug therapy; Z91.018 Allergy to other foods; Z91.040 Latex allergy status; V43.52XA Car driver injured in collision with other type car in traffic accident, initial encounter; Y92.410 Unspecified street and highway as the place of occurrence of the external cause
CPT/HCPCS: 99283